=== PATIENT | female | born 1930 | race American Indian/Alaskan Native ===

== ENCOUNTER 2017-01-28 11:09 | Outpatient (CLI) | payer MEDICARE ==
--- NOTE | 2017-01-28 12:44 | Magnetic Resonance Report ---
MRI BRAIN WITHOUT CONTRAST INDICATION: Alzheimer's dementia, late onset. COMPARISON: None similar at this institution. FINDINGS: Noncontrast multiplanar and multisequence MRI of the brain demonstrates age-appropriate, mild ventricular and sulcal enlargement, latter more so biparietal towards the vertex as on axial series 7, images 21-22. Extensive periventricular and few white matter FLAIR and T2 weighted hyperintensities as also in the matteo with numerous scattered lacunar infarcts as measuring 7 mm left inferior ganglionic, axial image 15. No acute infarct, hemorrhage, mass effect or midline shift. No abnormal extra-axial masses or fluid collections. Normal major intracranial vascular flow voids. Normal posterior fossa with preserved basilar cisterns and symmetric seventh and eighth nerve complexes. Right cataract surgery. Mild bilateral ethmoid sinusitis anteriorly. Mild right maxillary sinus mucosal thickening inferiorly also possible. Grossly clear remainder imaged paranasal sinuses and mastoid air cells. Dental susceptibility artifact. Cervical spondylosis. Normal midline appearance without evidence of Chiari malformation. CONCLUSION: No acute intracranial MRI abnormality with age-appropriate atrophy, microvascular changes and few other findings, as above. Please correlate. Thank you for the opportunity to participate in this patient's care.
== END 2017-01-28 11:10 | disposition home or self-care (01) ==
LOC: MRI 11:09
PROVIDERS: ATTEND Psychiatry & Neurology Neurology
DX: G30.1 Alzheimer's disease with late onset (principal); J32.2 Chronic ethmoidal sinusitis; M47.812 Spondylosis without myelopathy or radiculopathy, cervical region; G31.89 Other specified degenerative diseases of nervous system; Z98.41 Cataract extraction status, right eye
CPT/HCPCS: 70551